=== PATIENT | male | born 1985 | race Caucasian/White ===

== ENCOUNTER 2017-08-06 19:43 | Emergency (ER) | payer OTHER ==
[2017-08-06 19:59] VITALS: BP 126/73
--- NOTE | 2017-08-06 20:30 | ED Physician Documentation ---
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 and his hands and feet got cold but is fine now.) Review of Systems Constitutional: reports: Reviewed and negative Cardiac: reports: Reviewed and negative Respiratory: reports: Reviewed and negative PD PAST MEDICAL HISTORY - Present Medications Home Medications: Ambulatory Orders Medication Instructions Recorded Confirmed No Known Home Medications [No 08/06/17 08/06/17 Known Home Medications] - Allergies Allergies/Adverse Reactions: Allergies Allergy/AdvReac Type Severity Reaction Status Date / Time No Known Drug Allergies Allergy Verified 08/06/17 19:59 PD ED PE NORMAL - Vitals Vital signs reviewed: Yes - General General: Alert and oriented X 3, No acute distress - HEENT HEENT: PERRL, EOMI - Neck Neck: Supple, no meningeal sign, No bony TTP - Extremities Extremities: Other (Hands and feet, nontender and nonswollen.) - Neuro Neuro: Alert and oriented X 3, Normal speech - Psych Psych: Normal mood, Normal affect Results - Vitals Vitals: Vital Signs - 24 hr 08/06/17 19:56 Temperature 36.7 C Heart Rate 76 Respiratory 16 Rate Blood Pressure 126/73 O2 Saturation 97 Oxygen O2 Source Room air Departure - Departure Disposition: 01 Home, Self Care Clinical Impression: Cold exposure Qualifiers: Encounter type: initial encounter Qualified Code(s): T69.9XXA - Effect of reduced temperature, unspecified, initial encounter Condition: Good Record reviewed to determine appropriate education?: Yes Comments: Ibuprofen as needed for pain, return if worse.
== END 2017-08-06 20:30 | disposition home or self-care (01) ==
LOC: ED 19:43
DX: T69.9XXA Effect of reduced temperature, unspecified, initial encounter (principal)
CPT/HCPCS: 99282; 99283